=== PATIENT | male | born 1975 | race Caucasian/White ===

== ENCOUNTER 2022-03-26 08:51 | Day surgery (SDC) | payer OTHER ==
[~2022-03-26] VITALS: Ht 172.7 cm; Wt 100.4 kg
[2022-03-26] MEDS ORDERED: CRESTOR40 MG PO (09:35)
[2022-03-26] MEDS ORDERED: LOPRESSOR 550 MG/TAB PO (09:35)
[2022-03-26] MEDS ORDERED: PLAVIX 75MG TAB75 MG PO (09:36)
[2022-03-26] MEDS ORDERED: ASPIRIN E.C. 8181 MG PO (09:37)
[2022-03-26] MEDS ORDERED: GLUCOPHAGE500 MG/TAB PO (09:37)
[2022-03-26] MEDS ORDERED: NITROSTAT0.4 MG/TAB SL (09:38)
[2022-03-26] MEDS ORDERED: PRILOTC PO (09:39)
[2022-03-26] MEDS ORDERED: VSL#3112.5 Bill PO (09:40)
[2022-03-26 10:26] VITALS: BP 138/85; PULSE 56; TEMP 98.2
[2022-03-26 11:10] VITALS: BP 114/71; PULSE 60; TEMP 98.2
[2022-03-26 11:25] VITALS: BP 121/70; PULSE 62
[2022-03-26 11:40] VITALS: BP 113/69; PULSE 52
[2022-03-26 11:55] VITALS: BP 118/64; PULSE 56
--- NOTE | 2022-03-26 12:25 | NUR ---
1110 RETURNS TO ROOM 1 PER CART. AWAKE, ALERT. RESP CLEAR, SPONTANEOUS. AMBULATES TO RECLINER WITH STANDBY ASSIST. DENIES NAUSEA, ABD PAIN OR DYSPHAGIA. VITAL SIGNS OBTAINED. CALL LIGHT AT SIDE. IN ROOM 1125 TOLERATES PO SODA AND MUFFIN WITHOUT NAUSEA. SWALLOWS WITHOUT DIFFICULTY 1138 DISCHARGE INSTRUCTIONS REVIEWED. PATIENT VERBALIZES UNDERSTANDING. COPY PROVIDED IN DISCHARGE FOLDER. [address] CHURCH HERE TO VISIT WITH PATIENT. 1220 DRESSES SELF
== END 2022-03-26 12:28 | disposition home or self-care (01) ==
LOC: SDCO 08:51
DX: D12.5 Benign neoplasm of sigmoid colon (principal); K29.50 Unspecified chronic gastritis without bleeding; K31.7 Polyp of stomach and duodenum; K64.0 First degree hemorrhoids; K21.00 Gastro-esophageal reflux disease with esophagitis, without bleeding; G47.33 Obstructive sleep apnea (adult) (pediatric); Z87.891 Personal history of nicotine dependence
CPT/HCPCS: J2704; J7120